=== PATIENT | male | born 1935 | race African-American/Black ===

== ENCOUNTER 2016-10-05 03:36 | Observation (INO) | payer OTHER ==
--- NOTE | ~2016-10-05 | HP ---
History And Physical [address] [address] NAME: SCOTT ENRIQUEZ : 34 STATUS : ADM Nayeli PAT#: [id number] AGE: 81 ADM/REG DATE : 10/05/16 MR#: [id number] REPORT SERV DATE: 10/05/16 DICTATED BY: SHERMAN LIM DATE: 10/05/16 REPORT STATUS : Draft TRANSCRIBED BY: MODL DATE: 10/05/16 DATE OF ADMISSION: 10/05/2016 CHIEF COMPLAINT: Chest pressure. HISTORY OF PRESENT ILLNESS: The patient is an 81-year-old -Iranian male, who reports he ate dinner last evening. He had dinner, then had additional hamburger, went to bed late, took his medicine late, states sometime in the coremaker experimental hours, he developed one hour episode of chest pressure. He states, it was located in his mid substernal area, it was pressure in nature, and then after an hour, it resolved. He did call EMS who arrived and brought him to the hospital. He did not have any diaphoresis or radiation of the pain. He did not have any associated heartburn symptoms. He did not have any abdominal pain. He did not have any real chest pain, just pressure. He is feeling better now. He is completely pain-free, comfortable, and talkative. No other real complaints today. No fever. No cough. PAST MEDICAL HISTORY: 1. He has a history of CAD with history of CABG in 2006. 2. Ischemic cardiomyopathy. EF of 27. 3. Hypertension. 4. Paroxysmal atrial fibrillation. 5. Nonsustained ventricular tachycardia with AICD and pacer. 6. Hypertension. 7. Hyperlipidemia. 8. JERRELL. SOCIAL HISTORY: He quit smoking many years ago. He does not drink alcohol. He is . PAST SURGICAL HISTORY: He has an AICD and pacer, tonsillectomy, and CABG. FAMILY HISTORY: Negative for any premature coronary disease. HOME MEDICATIONS: Reviewed and attached. REVIEW OF SYSTEMS: A full ten-point review of systems obtained. Pertinent positives already mentioned in the HPI. PHYSICAL EXAMINATION: VITAL SIGNS: BP 148/89, temperature 97.9, pulse 63, respiratory rate 18, sats 98%. GENERAL: Well-developed -Iranian male. HEENT: Normocephalic, atraumatic. NECK: Supple. HEART: Regular rate and rhythm. LUNGS: Grossly clear. ABDOMEN: Soft, nontender, nondistended. History And Physical [address] [address] NAME: SCOTT ENRIQUEZ : 34 STATUS : ADM Nayeli PAT#: [id number] AGE: 81 ADM/REG DATE : 10/05/16 MR#: [id number] REPORT SERV DATE: 10/05/16 DICTATED BY: SHERMAN LIM DATE: 10/05/16 REPORT STATUS : Draft TRANSCRIBED BY: ROLANDO DATE: 10/05/16 EXTREMITIES: Warm and dry. SKIN: Intact without rash or lesion. NEURO: He is alert. He is oriented to person, place, and time. He moves all four extremities without difficulty. LABORATORY AND X-RAY STUDIES: 1. Chest x-ray is clear. He has a pacer and defibrillator in place. CT of the abdomen and pelvis shows what looks like no definite acute abnormality in the abdomen. 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 It is in the lower thoracic and abdominal aorta and there were some areas of linear calcification likely with calcified mural thrombus plaque, which was also present previously. He has had a chronic dissection. It was less likely. It is very similar to the previous CT on 08/13/2008. 2. He has a large duodenal diverticulum. He has some renal cyst and enlarged prostate. Lactate is normal at 0.8. CBC is normal. INR is 2.5. LFTs are normal with normal lipase. Troponin 0.02. AST is 110. Basic metabolic panel is normal other than a BUN of 12 and creatinine of 1.33. Glucose is 111. Urinalysis is negative. EKG showed sinus rhythm with no acute ST-T wave changes. ASSESSMENT/PLAN: 1. Chest pain, pressure. The patient had one episode of chest pain with chest pressure, which has now resolved. His enzymes are negative. Electrocardiogram is unrevealing. He had a CT of his abdomen and pelvis, which was unrevealing. I do not think those changes that are present are new. They look to be chronic and certainly do not correspond with symptomatology. Certainly, the biggest worry is angina, which would be new angina as he does not typically have anginal symptoms. We will do two more sets of enzymes, continue his aspirin, beta-jonathan, place him on a tele bed. We will follow up his enzymes. We will have [facility] see him since he is established with them and has had previous interventions, stress test echo, etc with their group. He could likely go home tomorrow if his workup is negative. 2. History of coronary artery disease with history of coronary artery bypass graft. Continue beta-jonathan, aspirin, and statin therapy. 3. History of cardiomyopathy, ejection fraction 27%. He looks to be well compensated. His chest x-ray is clear. He is not short of breath, not requiring oxygen. 4. History of paroxysmal atrial fibrillation. He is therapeutic on his Coumadin. We will continue his rate control. We will continue his labetalol, but he is currently actually in sinus rhythm today. 5. History of nonsustained ventricular tachycardia status post automatic implantable cardioverter-defibrillator placement. 6. Findings on CT of ectasia and atherosclerotic changes with some mild ectasia of the aorta with possible calcified thrombus, which was likely present previously. This will need to be followed up as an outpatient. 7. Deep venous thrombosis prophylaxis. He is fully anticoagulated. 8. Hypertension. We will go and give his morning medications today. 9. Disposition, pending above. History And Physical [address] [address] NAME: SCOTT ENRIQUEZ : 34 STATUS : ADM Nayeli PAT#: [id number] AGE: 81 ADM/REG DATE : 10/05/16 MR#: [id number] REPORT SERV DATE: 10/05/16 DICTATED BY: SHERMAN LIM DATE: 10/05/16 REPORT STATUS : Draft TRANSCRIBED BY: ROLANDO DATE: 10/05/16 YAKELIN/ROLANDO Sherman Lim M.D. / [id number] CC: Martinez Chavez MD
--- NOTE | ~2016-10-05 | CN ---
Consultation Report [facility] [address] [place]. [address] NAME: SCOTT CARBALLO : 34 STATUS : ADM Nayeli PAT#: [id number] AGE: 81 ADM/REG DATE : 10/05/16 MR#: [id number] REPORT SERV DATE: 10/05/16 DICTATED BY: DATE: REPORT STATUS : Draft TRANSCRIBED BY: MODL DATE: 10/05/16 CONSULTATION DATE OF CONSULTATION: 10/05/2016 CHIEF COMPLAINT/REASON FOR CONSULTATION: Chest pain. PRIMARY DRY SAND MOLDER: Erick Cintron M.D. HISTORY OF PRESENT ILLNESS: Mr. Scott Carballo is a very pleasant 81-year-old gentleman, who forgot to take his medications prior to going to bed last night. When he got up to go to bed at approximately 11 p.m., he drank a glass of water and then he had chest pain that went across his chest, he said it was pressure like in nature, 4/10 in intensity and it lasted till he got to the hospital, now is completely resolved. He did not take nitroglycerin at home to alleviate his symptoms. He denies any associated nausea, vomiting, or shortness of breath. He denies recurrent episodes. He states that he does have constipation. OUTPATIENT MEDICATIONS: Unclear from the patient's standpoint. From the Cardiology record in June, they were: 1. Amlodipine 5 mg p.o. daily. 2. Aspirin 81 mg p.o. daily. 3. Lasix 20 mg p.o. daily. 4. Jantoven 5 mg p.o. daily. 5. Labetalol 200 mg once per day. 6. Simvastatin 40 mg p.o. every other day. 7. Viagra 50 mg p.o. daily. ALLERGIES: NO KNOWN DRUG ALLERGIES. PAST MEDICAL HISTORY: 1. History of coronary artery disease, status post coronary artery bypass grafting on 09/27/[address] Dawson with a BARAHONA to the LAD, a saphenous vein graft to the obtuse marginal, a saphenous vein graft to the posterior descending artery. 2. Ischemic cardiomyopathy with an ejection fraction of 27%, last measured in the 2008 time frame. 3. History of paroxysmal atrial fibrillation. 4. History of AICD placement. 5. History of hypertension. SOCIAL HISTORY: The patient is , his is present at the bedside. He does not smoke, drink, or use extracurricular drugs. FAMILY HISTORY: Significant for mother who of cancer and a brother who of a myocardial infarction. Consultation Report [facility] [address] [place]. [address] NAME: SCOTT CARBALLO : 34 STATUS : ADM Nayeli PAT#: [id number] AGE: 81 ADM/REG DATE : 10/05/16 MR#: [id number] REPORT SERV DATE: 10/05/16 DICTATED BY: DATE: REPORT STATUS : Draft TRANSCRIBED BY: MODL DATE: 10/05/16 REVIEW OF SYSTEMS: All systems reviewed and is negative, except for as dictated in the HPI. PHYSICAL EXAMINATION: VITAL SIGNS: Temperature 97.8, blood pressure 180/96, respirations 16, oxygen saturations 97% on room air. GENERAL: Mr. Carballo is an 81-year-old gentleman, who appears younger than his stated age. NECK: I could not appreciate jugular venous distention. HEART: Regular rate and rhythm. Soft S1 and S2. I could not appreciate murmurs, rubs, or gallops. LUNGS: Clear to auscultation in all lovell. ABDOMEN: Soft and nontender. EXTREMITIES: Warm and well perfused. I did not appreciate any evidence of pitting edema. DIAGNOSTIC DATA: An EKG performed in the emergency department demonstrated a normal sinus rhythm at 63 beats per minute. There are voltage criteria for left ventricular hypertrophy. There are T-wave inversions in V5 and V6. In V5, these are mildly increased from a previous EKG performed in 04/2016. Laboratory results demonstrate an abdominal aortic aneurysm with either a chronic dissection or a thrombus present. Laboratory results note a potassium of 4.2, a BUN of 12, a creatinine of 1.33. Troponin 0.02. Hemoglobin 13.3, hematocrit of 40.2, platelet count is 154. A chest x-ray performed on admission documented no change since 2008. IMPRESSION REPORT AND PLAN: 1. Chest pain. 2. Known history of coronary artery disease, status post coronary artery bypass grafting as above. 3. Paroxysmal atrial fibrillation. 4. Hypertension. 5. Abdominal aortic aneurysm. RECOMMENDATIONS: 1. The patient is mildly reluctant to undergo stress testing, but reluctantly agrees at this time. 2. Check an additional troponin right now and if the troponin is negative or less than 0.04, then myocardial perfusion stress test. 3. If his stress test is negative, then would recommend home on his current cardiac regimen with an outpatient followup with Dr. Cintron. 4. Call if the stress test is intermediate or high risk. It has been my pleasure to participate in his care, please call with questions or change in clinical status. Consultation Report [facility] [address] [facility] [address] NAME: SCOTT CARBALLO : 34 STATUS : ADM Nayeli PAT#: [id number] AGE: 81 ADM/REG DATE : 10/05/16 MR#: [id number] REPORT SERV DATE: 10/05/16 DICTATED BY: DATE: REPORT STATUS : Draft TRANSCRIBED BY: ROLANDO DATE: 10/05/16 [facility]/ROLANDO Karma Patel M.D. / [id number] CC: Martinez Chavez MD
--- NOTE | ~2016-10-05 | DS ---
Discharge Summary [facility] [address] [place]. [address] NAME: SCOTT ENRIQUEZ : 34 STATUS : ADM Nayeli PAT#: [id number] AGE: 81 ADM/REG DATE : 10/05/16 MR#: [id number] REPORT SERV DATE: 10/06/16 DICTATED BY: EDILMA DEY DATE: 10/05/16 REPORT STATUS : Draft TRANSCRIBED BY: ROLANDO DATE: 10/05/16 ADMISSION DATE: 10/05/2016 DISCHARGE DATE: DISCHARGE DIAGNOSES: 1. Chest pain. 2. Coronary artery disease, status post CABG. 3. Paroxysmal atrial fibrillation. 4. Hypertension. 5. Abdominal aortic aneurysm. 6. Chronic kidney disease stage 3. DISCHARGE MEDICATIONS: Include: 1. Norvasc 5 mg p.o. daily. 2. Aspirin 81 mg p.o. daily. 3. Lasix 20 mg p.o. b.i.d. 4. Labetalol 200 mg p.o. b.i.d. 5. Zocor 40 mg p.o. at bedtime. 6. Coumadin 5 mg p.o. daily. 7. Nitroglycerin 0.4 sublingual p.r.n. chest pain. DISPOSITION AND FOLLOWUP: The patient medically stable for discharge. Follow up with Cardiology as directed and primary care physician in one week. HISTORY AND PHYSICAL: Per initial assessment. DISCHARGE VITALS: Temperature 97.5, heart rate 69, blood pressure 139/79, respiratory rate 18, O2 saturation 96 on room air. DISCHARGE LABS: WBC of 8.2, hemoglobin 13.3, hematocrit 40.2, platelets 154. Sodium 143, potassium 4.2, chloride 107, bicarb 29, lactate 0.8, BUN 12, creatinine 1.33, magnesium 2.2. Troponin 0.02, next less than 0.02. Lipase 85. IMAGIN. Chest x-ray, impression, mild cardiomegaly, CABG, pacing device. No acute process otherwise demonstrated radiographically. 2. CT of the abdomen and pelvis, impression, no definite acute abnormality appreciated within the abdomen or pelvis. Left renal cyst with nonobstructing bilateral nephrolithiasis. Enlarged prostate. 3. 2D echo, impression, borderline left ventricle ejection fraction visually estimated at 45% to 50%. Left ventricular hypertrophy. Left ventricle diastolic dysfunction with left atrial dilatation. Right ventricle systolic function also appears mildly reduced. No significant valvular dysfunction. No regional wall motion abnormalities. No pericardial effusion. No evidence of pleural effusion. Stress test pending. HOSPITAL COURSE: This is an 81-year-old man with past medical history of coronary artery Discharge Summary [address] [address] NAME: SCOTT ENRIQUEZ : 34 STATUS : ADM Nayeli PAT#: [id number] AGE: 81 ADM/REG DATE : 10/05/16 MR#: [id number] REPORT SERV DATE: 10/06/16 DICTATED BY: EDILMA DEY DATE: 10/05/16 REPORT STATUS : Draft TRANSCRIBED BY: ROLANDO DATE: 10/05/16 disease, comes into the ED complaining of chest pain. The patient was admitted for further management and evaluation. Cardiology was consulted. More details per consult note. Troponins negative x2. 2D echo as described above without any evidence of wall motion abnormality. Awaiting stress test results. If negative, the patient medically stable, to follow up with Cardiology as an outpatient. If stress intermediate or high risk, the patient will stay for further management by Cardiology. The patient instructed to take all medications as described above. At the time of discharge, the patient did not complain of any chest pain. Denied any palpitations, diaphoresis, or any complaints. The patient actually wanted to go home. If discharged, the patient can follow up with primary care physician in one week. Take all medications as described above. Total time for discharge planning, 25 minutes. PIPPA/ROLANDO Martinez Chavez MD / [id number] CC: Martinez Chavez MD
[~2016-10-05 03:36] MED LIST: ACT300 PO; ASAB PO; CENTRUM TAB1 TAB PO; DIOVAN320 MG PO; L20 PO; LABETALOL200 MG OR; MAGOX4 PO; NORV5 PO; PRILO PO; RHINOAQ NAS; VIAGRA100 MG PO; ZOCOR80 MG PO
[2016-10-05 04:13] LABS: BASOPHILS 0.2 %; BASOPHILS ABSOLUTE 0.02 10/3/uL (0.0-0.16); EOSINOPHILS 3.1 %; EOSINOPHILS ABSOLUTE 0.25 10/3/uL (0.0-0.53); ER CBC TAT 0 Hrs 00 Mins; HEMATOCRIT 40.2 % (40.0-51.0); HEMOGLOBIN 13.3 g/dL (13.6-17.8); IMMATURE GRANULOCYTES 0.2 %; IMMATURE GRANULOCYTES ABSOLUTE 0.02 10/3/uL (0.0-0.11); LYMPHOCYTES 12.7 %; LYMPHOCYTES ABSOLUTE 1.04 10/3/uL (0.67-4.30); MEAN CORPUS HGB CONC 33.1 g/dL (32.0-36.0); MEAN CORPUSCULAR HEMOGLOB 28.9 pg (26.0-34.0); MEAN CORPUSCULAR VOLUME 87.4 fL (80-100); MEAN PLATELET VOLUME 11.2 fL (9.2-13.0); MONOCYTES 6.6 %; MONOCYTES ABSOLUTE 0.54 10/3/uL (0.21-1.20); NEUTROPHILS 77.2 %; NEUTROPHILS ABSOLUTE 6.31 10/3/uL (2.02-8.40); PLATELET COUNT 154 10/3/uL (150-400); WHITE BLOOD CELLS 8.2 10/3/uL (4.5-10.5)
[2016-10-05 04:15] LABS: MANUAL DIFF NO %
[2016-10-05 04:31] LABS: ASCORBIC ACID (UR NOT ORDER) NEG (NEG); BILIRUBIN, URINE NEGATIVE (NEG); ER URINALYSIS TAT 0 Hrs 00 Mins; KETONE, URINE NEGATIVE (NEG); LEUKOCYTE ESTERASE(NOT OR NEG (NEG); NITRITE (URINE) NEG (NEG); WBC (NOT ORDERED) (RFLEX) 3 (0-5)
[2016-10-05 04:32] LABS: ALBUMIN 3.3 G/DL (3.5-5.0); BUN (BLOOD UREA NITROGEN) 12 MG/DL (6-23); CALCIUM, SERUM 8.3 MG/DL (8.5-10.4); CHEST PAIN PROFILE TAT 0 Hrs 00 Mins; CHLORIDE, SERUM 107 MMOL/L (96-112); CO2 (CARBON DIOXIDE) 29 MMOL/L (24-34); CREATININE 1.33 MG/DL (0.70-1.30); DIRECT BILIRUBIN 0.3 MG/DL (0.0-0.4); GFR AFRICAN AMERICAN 57 ML/MIN (>=60); GFR NON AFRICAN AMERICAN 49 ML/MIN (>=60); GLUCOSE, SERUM 111 MG/DL (60-99); INDIRECT BILIRUBIN(NOT ORDER) 0.5 MG/DL (0.1-0.9); POTASSIUM, SERUM 4.2 MMOL/L (3.5-5.3); SGOT(AST) 110 U/L (5-40); SGPT(ALT) 62 U/L (5-65); SODIUM, SERUM 143 MMOL/L (135-148); TOTAL BILIRUBIN 0.8 MG/DL (0-1.2); TOTAL PROTEIN 7.4 G/DL (6.0-8.5); TROPONIN I 0.02 NG/ML (<0.05)
[2016-10-05 04:36] LABS: ALKALINE PHOSPHATASE 113 U/L (45-117)
[2016-10-05 04:40] LABS: INTERNATIONAL NORMAL RATI 2.5 UNITS (-); PARTIAL THROMBO TIME 36.4 SEC (22.5-37.2); PROTIME (NOT ORD) 26.6 SEC (12.0-14.5)
[2016-10-05 04:51] LABS: HELMET CELLS OCC (0-2/OIF); PLATELET ESTIMATE ADQ (ADEQUATE); SCHISTOCYTES OCC (0-2/OIF)
[2016-10-05 04:52] LABS: ANISOCYTOSIS 1+ (5-10/OIF) (0-5/OIF)
[2016-10-05 06:01] LABS: LACTATE 0.8 MMOL/L (0.3-2.4)
[2016-10-05] MEDS ORDERED: ASAB PO (06:39)
[2016-10-05] MEDS ORDERED: L20 PO (06:40)
[2016-10-05] MEDS ORDERED: JANTOVEN5 MG PO (06:41)
[2016-10-05] MEDS ORDERED: NORV5 PO (06:42)
[2016-10-05] MEDS ORDERED: ZOCOR40 PO (06:45)
[2016-10-05] MEDS ORDERED: TRAN200 PO (06:45)
[2016-10-06] MEDS ORDERED: NTG150 SL (09:58)
[2016-11-20] MEDS ORDERED: VIAGRA50 MG PO (08:56)
[2016-11-21] MEDS ORDERED: ULTRAM50 PO (11:17)
== END 2016-10-06 10:12 | disposition home or self-care (01) ==
LOC: ER 03:36 → CDU1 07:57
PROVIDERS: Nurse Practitioner
DX: R07.9 Chest pain, unspecified (principal); I25.10 Atherosclerotic heart disease of native coronary artery without angina pectoris; Z95.1 Presence of aortocoronary bypass graft; I12.9 Hypertensive chronic kidney disease with stage 1 through stage 4 chronic kidney disease, or unspecified chronic kidney disease; N18.3 Chronic kidney disease, stage 3 (moderate); I71.4 Abdominal aortic aneurysm, without rupture; I48.0 Paroxysmal atrial fibrillation; Z79.01 Long term (current) use of anticoagulants; Z79.899 Other long term (current) drug therapy; I51.7 Cardiomegaly; N20.0 Calculus of kidney; N40.0 Benign prostatic hyperplasia without lower urinary tract symptoms; Z79.82 Long term (current) use of aspirin; E78.5 Hyperlipidemia, unspecified; G47.33 Obstructive sleep apnea (adult) (pediatric); Z95.810 Presence of automatic (implantable) cardiac defibrillator; I25.5 Ischemic cardiomyopathy; I47.2 Ventricular tachycardia; Z87.891 Personal history of nicotine dependence; Z90.89 Acquired absence of other organs; Z98.890 Other specified postprocedural states
CPT/HCPCS: 71010; 74176; 78452; 80048; 80076; 81001; 83605; 83690; 83735; 84484; 85025; 85610; 85730; 93005; 93017; 93306; 99285; A9270-GY; A9502; G0378